=== PATIENT | male | born 1965 | race Caucasian/White ===

== ENCOUNTER 2020-04-25 14:14 | Inpatient (IN) ==
[2020-04-25] MEDS: NS 0.9% 1000 ml BAG 2,000 ML IV ONE ×2 (14:22→14:35)
[2020-04-25] MEDS ORDERED: NS 0.9% 1000 ml BAG 1,000 ML IV ONE ×2 (14:49→18:57)
[2020-04-25 15:00] LABS: ABS Eosinophils 0.1 10^3/ul (0-0.6); ABS Lymphocytes 1.2 10^3/ul (1.0-4.8); ABS Monocytes 0.7 10^3/ul (0-0.8); Eosinophil % 0.9 %; Hematocrit 38 % (42-52); Hemoglobin 13.2 g/dL (14.0-18.0); Lymphocyte % 12.5 %; Mean Corpuscular HGB Conc 35 g/dL (31-36); Mean Corpuscular Hemoglobin 32 pg (27-31); Mean Corpuscular Volume 93 fL (80-94); Platelet Count 312 10^3/uL (150-450); Red Blood Count 4.11 10^6 /uL (4.18-5.48); Red Cell Distribution Width 14 % (10-15); White Blood Count 9.3 10^3/uL (3.5-10.8)
[2020-04-25 15:19] LABS: Troponin I 0.01 ng/mL (<0.03)
[2020-04-25 15:35] LABS: ALT 17 U/L (7-52); AST 17 U/L (13-39); Albumin 3.5 g/dL (3.2-5.2); Alkaline Phosphatase 55 U/L (34-104); CO2 Carbon Dioxide 24 mmol/L (22-32); Calcium 7.4 mg/dL (8.6-10.3); Chloride 97 mmol/L (101-111); EGFR African American 12.5 (>60); EGFR Non-African American 10.3 (>60); Globulin 3.5 g/dL (2-4); Glucose 95 mg/dL (70-100); Sodium 135 mmol/L (135-145)
[2020-04-25 15:36] LABS: Anion Gap 14 mmol/L (2-11)
[2020-04-25 15:38] LABS: Alcohol, S < 10 mg/dL (<10); Salicylate < 2.50 mg/dL (<30)
[2020-04-25] MEDS ORDERED: Albuterol 2.5mg/3 ml (0.083%) NEB.SOLN INH ONE (15:44)
[2020-04-25] MEDS ORDERED: Insulin REGULAR 100 unit/ml(*) IV PUSH ONE (15:44)
[2020-04-25] MEDS ORDERED: CALCIUM GLUCONATE 1GM/50ML NS 1 GM/50 ML BAG IV ONE (15:44)
[2020-04-25] MEDS ORDERED: Dextrose 50% VIAL 50 ml IV ONE (15:45)
[2020-04-25] MEDS ORDERED: Dextrose 50% Syringe 50 ml 25 GM/50 ML SYRINGE ONE (16:01)
[2020-04-25] MEDS ORDERED: Dextrose 50% Syringe 50 ml 25 GM/50 ML SYRINGE IV PUSH ONE (16:05)
[2020-04-25 16:08] LABS: Magnesium 1.5 mg/dL (1.9-2.7)
[2020-04-25] MEDS ORDERED: Magnesium Sulfate 2 gm BAG 2 GM/50 ML BAG IVPB ONE (16:13)
[2020-04-25 16:16] LABS: BUN/Creatinine Ratio 26.7 (8-20); Blood Urea Nitrogen 153 mg/dL (6-24)
[2020-04-25] MEDS ORDERED: Magnesium Sulfate IV 1GM/100ML 1 GM/100 ML BAG IV ONE (17:44)
[2020-04-25] MEDS ORDERED: NS 0.9% 1000 ml BAG 1,000 ML IV SCH (18:00)
[2020-04-25 18:15] LABS: C Reactive Protein 93.57 mg/L (<8.01)
[2020-04-25 18:26] LABS: Urine Appearance Clear; Urine Bilirubin Negative (Negative); Urine Blood 1+ (Negative); Urine Color Straw; Urine Glucose Negative (Negative); Urine Ketones Negative (Negative); Urine Nitrite Negative (Negative); Urine Protein Negative (Negative); Urine Specific Gravity 1.009 (1.010-1.030); Urine Urobilinogen Negative (Negative)
[2020-04-25 18:32] LABS: Urine Bacteria Absent (Absent); Urine Red Blood Cell Trace(0-2/hpf) (Absent); Urine White Blood Cell Absent (Absent)
[2020-04-25 18:41] LABS: Urine Benzodiazepine Screen Presumptive Positive (None Detect); Urine Creatinine Concentration 69.04 mg/dL; Urine Opiates Screen Presumptive Positive (None Detect)
[2020-04-25 19:19] LABS: Erythrocyte Sed Rate 80 mm/Hr (0-19)
[2020-04-25] MEDS ORDERED: CLOTRIMAZOLE 1% TOPICAL SCH (21:00)
[2020-04-25] MEDS: Heparin 5000 UNITS/ML VIAL(*) 1 ml vial SUBCUT SCH (22:22)
[2020-04-25] MEDS: Clotrimazole 1% CREAM 30 gm TOPICAL SCH (22:23)
[2020-04-25] MEDS: Nystatin TOP POWDER 15 GM BTL TOPICAL SCH (22:23)
[2020-04-25 22:37] LABS: INR 1.09 (0.82-1.09)
[2020-04-25 22:42] LABS: Calcium 7.4 mg/dL (8.6-10.3)
[2020-04-25 22:47] LABS: BUN/Creatinine Ratio 30.4 (8-20); EGFR African American 20.2 (>60); EGFR Non-African American 16.7 (>60)
[2020-04-25 23:27] LABS: Potassium 4.8 mmol/L (3.5-5.0)
[2020-04-25 23:37] LABS: Urine Appearance Cloudy; Urine Bilirubin Negative (Negative); Urine Blood 3+ (Negative); Urine Color Straw; Urine Glucose Negative (Negative); Urine Ketones Negative (Negative); Urine Nitrite Negative (Negative); Urine Protein Negative (Negative); Urine Specific Gravity 1.009 (1.010-1.030); Urine Urobilinogen Negative (Negative)
[2020-04-25 23:42] LABS: Urine Bacteria Absent (Absent); Urine Red Blood Cell 3+(>10/hpf) (Absent); Urine White Blood Cell Trace(0-5/hpf) (Absent)
[2020-04-26] MEDS: Nicotine GUM 4MG FRUIT FLAVOR PO PRN ×2 (01:18→21:15)
[2020-04-26 05:18] LABS: ABS Eosinophils 0.1 10^3/ul (0-0.6); ABS Lymphocytes 1.2 10^3/ul (1.0-4.8); ABS Monocytes 0.7 10^3/ul (0-0.8); Eosinophil % 1.5 %; Hematocrit 36 % (42-52); Hemoglobin 12.3 g/dL (14.0-18.0); Lymphocyte % 16.2 %; Mean Corpuscular HGB Conc 35 g/dL (31-36); Mean Corpuscular Hemoglobin 32 pg (27-31); Mean Corpuscular Volume 92 fL (80-94); Mean Platelet Volume 6.7 fL (7.4-10.4); Nucleated Red Blood Cells % 0.1; Platelet Count 296 10^3/uL (150-450); Red Blood Count 3.88 10^6 /uL (4.18-5.48); Red Cell Distribution Width 14 % (10-15); White Blood Count 7.3 10^3/uL (3.5-10.8)
[2020-04-26] MEDS: Heparin 5000 UNITS/ML VIAL(*) 1 ml vial SUBCUT SCH ×3 (05:28→21:15)
[2020-04-26 05:31] LABS: BUN/Creatinine Ratio 39.4 (8-20); Calcium 7.5 mg/dL (8.6-10.3); EGFR African American 33.2 (>60); EGFR Non-African American 27.5 (>60); Magnesium 1.5 mg/dL (1.9-2.7); Phosphorus 5.2 mg/dL (2.5-5.0); Potassium 4.6 mmol/L (3.5-5.0); Uric Acid 17.3 mg/dL (4.4-7.6)
[2020-04-26 06:16] LABS: Hepatitis C Antibody Negative (Negative)
[2020-04-26] MEDS ORDERED: Magnesium Sulf 4 GM/100 ML IV 4,000 MG/100 ML BAG IVPB ONE (07:27)
[2020-04-26] MEDS: Aspirin EC 81 mg TAB.EC (enteric coated) PO SCH (08:23)
[2020-04-26] MEDS: lamoTRIgine 100 mg TAB (*) PO SCH (08:23)
[2020-04-26 14:11] LABS: BUN/Creatinine Ratio 41.2 (8-20); Calcium 8.4 mg/dL (8.6-10.3); EGFR African American 43.7 (>60); EGFR Non-African American 36.1 (>60); Magnesium 2.6 mg/dL (1.9-2.7); Potassium 4.6 mmol/L (3.5-5.0)
[2020-04-26] MEDS ORDERED: NS 0.9% 1000 ml BAG 1,000 ML IV SCH (16:00)
[2020-04-26] MEDS: Lactated Ringers 1000 ml BAG 1,000 ML IV SCH ×2 (16:27→22:29)
[2020-04-26] MEDS: Clotrimazole 1% CREAM 30 gm TOPICAL SCH ×2 (16:37→21:16)
[2020-04-26] MEDS: Nystatin TOP POWDER 15 GM BTL TOPICAL SCH ×2 (16:37→21:16)
[2020-04-27] MEDS: Lactated Ringers 1000 ml BAG 1,000 ML IV SCH (04:14)
[2020-04-27] MEDS: Heparin 5000 UNITS/ML VIAL(*) 1 ml vial SUBCUT SCH ×2 (05:57→13:25)
[2020-04-27 06:25] LABS: ABS Eosinophils 0.1 10^3/ul (0-0.6); ABS Lymphocytes 1.3 10^3/ul (1.0-4.8); ABS Monocytes 0.5 10^3/ul (0-0.8); Eosinophil % 1.6 %; Hematocrit 37 % (42-52); Hemoglobin 12.5 g/dL (14.0-18.0); Mean Corpuscular HGB Conc 34 g/dL (31-36); Mean Corpuscular Hemoglobin 32 pg (27-31); Mean Corpuscular Volume 93 fL (80-94); Mean Platelet Volume 6.8 fL (7.4-10.4); Platelet Count 295 10^3/uL (150-450); Red Blood Count 3.93 10^6 /uL (4.18-5.48); Red Cell Distribution Width 14 % (10-15); White Blood Count 6.5 10^3/uL (3.5-10.8)
[2020-04-27 06:52] LABS: BUN/Creatinine Ratio 36.9 (8-20); EGFR African American 63.1 (>60); EGFR Non-African American 52.2 (>60); Magnesium 1.6 mg/dL (1.9-2.7); Potassium 4.4 mmol/L (3.5-5.0)
[2020-04-27] MEDS: Aspirin EC 81 mg TAB.EC (enteric coated) PO SCH (08:06)
[2020-04-27] MEDS: lamoTRIgine 100 mg TAB (*) PO SCH (08:07)
[2020-04-27] MEDS: Clotrimazole 1% CREAM 30 gm TOPICAL SCH (14:18)
[2020-04-27] MEDS: Nystatin TOP POWDER 15 GM BTL TOPICAL SCH (14:18)
[2020-04-27 15:02] VITALS: BP 121/78
== END 2020-04-27 17:15 | disposition home or self-care (01) | DRG 682 ==
LOC: ED 14:14 → MEDTELE 18:53
PROVIDERS: ADMIT Internal Medicine; ATTEND Internal Medicine

== ENCOUNTER 2023-06-03 17:30 | Observation (INO) ==
[2023-06-03 20:17] LABS: ABS Basophils 0.1 10^3/uL (0.0-0.1); ABS Eosinophils 0.1 10^3/uL (0.0-0.5); ABS Lymphocytes 1.9 10^3/uL (1.0-4.8); ABS Monocytes 1.1 10^3/uL (0.0-1.1); ABS Neutrophils 10.6 10^3/uL (1.5-7.6); ABS Nucleated RBC 0.01 10^3/ul; Eosinophil % 0.4 %; Hematocrit 45.1 % (38-53); Hemoglobin 15.4 g/dL (13.2-16.3); Lymphocyte % 13.8 %; Mean Corpuscular Hgb Conc 34.2 g/dL (31-36); Mean Corpuscular Volume 90.7 fL (80-97); Mean Platelet Volume 6.1 fL (7.5-11.2); Platelet Count 350 10^3/uL (150-450); Red Blood Count 4.97 10^6/uL (4.06-5.63); Red Cell Distribution Width 13.4 % (12-17); White Blood Count 13.8 10^3/uL (3.6-10.2)
[2023-06-03 20:34] LABS: Albumin/Globulin Ratio 1.3 (1-3); Calcium 9.2 mg/dL (8.6-10.3); Magnesium 1.3 mg/dL (1.9-2.7); Potassium 3.4 mmol/L (3.5-5.0); Total Bilirubin 0.5 mg/dL (0.2-1.0)
[2023-06-03 20:54] LABS: TSH Ultra Thyroid Stim Horm 0.85 mcIU/mL (0.34-5.60)
[2023-06-03] MEDS ORDERED: NS 0.9% 1000 ml BAG 2,000 ML IV ONE (23:13)
[2023-06-04] MEDS ORDERED: Magnesium Sulf 4 GM/100 ML IV 4,000 MG/100 ML BAG IVPB ONE ×2 (00:05→07:28)
[2023-06-04] MEDS ORDERED: Potassium Chlor 20 meq TAB.ER PO ONE ×2 (00:06→10:53)
[2023-06-04] MEDS ORDERED: NS 0.9% 1000 ml BAG 1,000 ML IV SCH (00:15)
[2023-06-04] MEDS ORDERED: Iodixanol (CONTRAST) 320 MG/ML 100 ML SDV IV ONE (00:18)
[2023-06-04] MEDS ORDERED: Enoxaparin 30 MG/0.3 ML SYR SUBCUT SCH (01:00)
[2023-06-04 04:12] LABS: Urine Appearance Clear; Urine Bilirubin Negative (Negative); Urine Blood 2+ (Negative); Urine Color Yellow; Urine Glucose Negative (Negative); Urine Ketones Negative (Negative); Urine Nitrite Negative (Negative); Urine Protein Negative (Negative); Urine Specific Gravity 1.011 (1.002-1.030); Urine Urobilinogen Negative (Negative)
[2023-06-04 04:18] LABS: Urine Amorphous Crystals Present (Absent); Urine Bacteria Absent (Absent); Urine Red Blood Cell Trace(0-2/hpf) (Absent); Urine Squamous Epithelial Cell Present (Absent); Urine White Blood Cell 1+(6-10/hpf) (Absent)
[2023-06-04] MEDS ORDERED: Aspirin EC 81 mg TAB.EC (enteric coated) PO SCH (09:00)
[2023-06-04] MEDS ORDERED: DULoxetine DR 60 mg CAP PO SCH (09:00)
[2023-06-04 09:53] LABS: ABS Basophils 0.1 10^3/uL (0.0-0.1); ABS Eosinophils 0.1 10^3/uL (0.0-0.5); ABS Lymphocytes 1.8 10^3/uL (1.0-4.8); ABS Monocytes 0.8 10^3/uL (0.0-1.1); ABS Neutrophils 6.3 10^3/uL (1.5-7.6); Eosinophil % 1.3 %; Hematocrit 40.7 % (38-53); Lymphocyte % 19.7 %; Mean Corpuscular Hemoglobin 31.5 pg (27-33); Mean Corpuscular Hgb Conc 34.4 g/dL (31-36); Mean Corpuscular Volume 91.5 fL (80-97); Mean Platelet Volume 6.2 fL (7.5-11.2); Platelet Count 342 10^3/uL (150-450); Red Blood Count 4.44 10^6/uL (4.06-5.63); Red Cell Distribution Width 13.5 % (12-17); White Blood Count 9.1 10^3/uL (3.6-10.2)
[2023-06-04 10:09] LABS: Calcium 8.3 mg/dL (8.6-10.3); Creatinine, Serum 1.69 mg/dL (0.67-1.17); Magnesium 2.2 mg/dL (1.9-2.7); Potassium 3.4 mmol/L (3.5-5.0); eGFR CKD-EPI 46.5 (>60)
[2023-06-04 12:58] VITALS: BP 0/0
[2023-06-04] MEDS ORDERED: Zaleplon 10 mg CAP (NF) PO SCH (21:00)
== END 2023-06-04 12:50 | disposition home or self-care (01) ==
LOC: ED 17:30 → EDHOLD 17:30 → SUATTDRO 06-04 00:02 → EDHOLD 06-04 12:49
PROVIDERS: ADMIT Student in an Organized Health Care Education/Training Program; ATTEND Hospitalist

== ENCOUNTER 2023-11-07 15:47 | Inpatient (IN) ==
[2023-11-07] MEDS ORDERED: Piperacillin/Tazobac 3.375 BAG 3.375 GM/100 ML BAG IV ONE (16:07)
[2023-11-07 16:38] LABS: ABS Basophils 0.1 10^3/uL (0.0-0.1); ABS Eosinophils 0.2 10^3/uL (0.0-0.5); ABS Lymphocytes 1.4 10^3/uL (1.0-4.8); ABS Monocytes 0.9 10^3/uL (0.0-1.1); ABS Neutrophils 6.7 10^3/uL (1.5-7.6); Eosinophil % 1.7 %; Hematocrit 41.7 % (38-53); Hemoglobin 14.2 g/dL (13.2-16.3); Lymphocyte % 15.4 %; Mean Corpuscular Hemoglobin 30.7 pg (27-33); Mean Corpuscular Hgb Conc 34.1 g/dL (31-36); Mean Corpuscular Volume 89.8 fL (80-97); Mean Platelet Volume 6.7 fL (7.5-11.2); Platelet Count 272 10^3/uL (150-450); Red Blood Count 4.64 10^6/uL (4.06-5.63); Red Cell Distribution Width 15.5 % (12-17); White Blood Count 9.3 10^3/uL (3.6-10.2)
[2023-11-07 16:41] LABS: Urine Appearance Cloudy; Urine Bilirubin Negative (Negative); Urine Blood 3+ (Negative); Urine Color Yellow; Urine Glucose Negative (Negative); Urine Ketones Negative (Negative); Urine Nitrite Negative (Negative); Urine Protein 3+(>=500 mg/dL) (Negative); Urine Specific Gravity 1.024 (1.002-1.030); Urine Urobilinogen Negative (Negative)
[2023-11-07 16:51] LABS: Activated Partial Thrombo Time 29.2 seconds (26.0-38.0); INR 1.12 (0.83-1.13)
[2023-11-07 16:57] LABS: Urine Bacteria Absent (Absent); Urine Red Blood Cell 3+(>10/hpf) (Absent); Urine Squamous Epithelial Cell Present (Absent); Urine White Blood Cell 1+(6-10/hpf) (Absent)
[2023-11-07 16:58] LABS: Albumin 4.1 g/dL (3.2-5.2); Albumin/Globulin Ratio 1.5 (1-3); C Reactive Protein 159.54 mg/L (<8.01); Calcium 8.9 mg/dL (8.6-10.3); Creatinine, Serum 1.37 mg/dL (0.67-1.17); Globulin 2.7 g/dL (2-4); Potassium 3.4 mmol/L (3.5-5.0); Total Bilirubin 0.6 mg/dL (0.2-1.0); Total Protein 6.8 g/dL (6.4-8.9); eGFR CKD-EPI 59.4 (>60)
[2023-11-07] MEDS ORDERED: Senna TAB 8.6 mg TAB PO ONE (17:51)
[2023-11-07] MEDS ORDERED: Polyethylene Glycol 3350 17 GM PACKET PO ONE (17:51)
[2023-11-07] MEDS ORDERED: Senna TAB 8.6 mg TAB PO PRN (17:52)
[2023-11-07] MEDS ORDERED: Polyethylene Glycol 3350 17 GM PACKET PO PRN (17:53)
[2023-11-07 18:12] LABS: High Sensitivity Troponin 1 Hr 4 pg/mL (<20)
[2023-11-07] MEDS ORDERED: Potassium Chlor 20 meq TAB.ER PO ONE (18:40)
[2023-11-07] MEDS: NS 0.9% 1000 ml BAG 1,000 ML IV SCH (18:51)
[2023-11-08] MEDS: NS 0.9% 1000 ml BAG 1,000 ML IV SCH (05:00)
[2023-11-08 06:34] LABS: Hematocrit 41.1 % (38-53); Hemoglobin 13.7 g/dL (13.2-16.3); Mean Corpuscular Hemoglobin 30.4 pg (27-33); Mean Corpuscular Hgb Conc 33.3 g/dL (31-36); Mean Corpuscular Volume 91.3 fL (80-97); Platelet Count 242 10^3/uL (150-450); Red Cell Distribution Width 15.4 % (12-17); White Blood Count 7.2 10^3/uL (3.6-10.2)
[2023-11-08 06:52] LABS: Albumin 3.5 g/dL (3.2-5.2); Albumin/Globulin Ratio 1.3 (1-3); Calcium 8.7 mg/dL (8.6-10.3); Creatinine, Serum 1.05 mg/dL (0.67-1.17); Globulin 2.6 g/dL (2-4); Magnesium 1.9 mg/dL (1.9-2.7); Potassium 3.2 mmol/L (3.5-5.0); Total Bilirubin 0.6 mg/dL (0.2-1.0); Total Protein 6.1 g/dL (6.4-8.9); eGFR CKD-EPI 81.8 (>60)
[2023-11-08] MEDS ORDERED: Zosyn per Pharmacy NOTE FOLLOW UP SCH (07:00)
[2023-11-08] MEDS ORDERED: Potassium Chlor 20 meq TAB.ER PO ONE ×2 (07:38→13:00)
[2023-11-08] MEDS ORDERED: ZOSYN 3.375 GM x ONE DOSE over 30 miuntes IV (08:00)
[2023-11-08] MEDS ORDERED: Polyethylene Glycol 3350 17 GM PACKET PO SCH (09:00)
[2023-11-08] MEDS: DULoxetine DR 60 mg CAP PO SCH (09:01)
[2023-11-08] MEDS: Polyethylene Glycol 3350 17 GM PACKET PO SCH ×2 (09:02→21:00)
[2023-11-08] MEDS: ZOSYN 3.375 GM Q8H per EXTENDED INFUSION IV SCH ×2 (13:00→20:48)
[2023-11-09] MEDS: ZOSYN 3.375 GM Q8H per EXTENDED INFUSION IV SCH ×2 (05:03→19:53)
[2023-11-09 06:53] LABS: ABS Eosinophils 0.2 10^3/uL (0.0-0.5); ABS Monocytes 0.6 10^3/uL (0.0-1.1); ABS Neutrophils 5.2 10^3/uL (1.5-7.6); ABS Nucleated RBC 0.01 10^3/ul; Eosinophil % 2.6 %; Hematocrit 37.8 % (38-53); Hemoglobin 12.9 g/dL (13.2-16.3); Lymphocyte % 24.9 %; Mean Corpuscular Hemoglobin 30.6 pg (27-33); Mean Corpuscular Hgb Conc 34.1 g/dL (31-36); Mean Corpuscular Volume 89.9 fL (80-97); Mean Platelet Volume 7.2 fL (7.5-11.2); Nucleated Red Blood Cells % 0.1 %/100WBC (0.0-0.8); Platelet Count 278 10^3/uL (150-450); Red Cell Distribution Width 15.5 % (12-17)
[2023-11-09 07:02] LABS: Calcium 8.8 mg/dL (8.6-10.3); Creatinine, Serum 1.02 mg/dL (0.67-1.17); Magnesium 1.9 mg/dL (1.9-2.7); Potassium 3.5 mmol/L (3.5-5.0); eGFR CKD-EPI 84.7 (>60)
[2023-11-09] MEDS: Polyethylene Glycol 3350 17 GM PACKET PO SCH (09:28)
[2023-11-09] MEDS: DULoxetine DR 60 mg CAP PO SCH (10:35)
[2023-11-09 14:39] VITALS: BP 104/68
== END 2023-11-09 15:48 | disposition home or self-care (01) | DRG 872 ==
LOC: ED 15:47 → EDHOLD 15:47 → SUATTDRO 17:54 → SSU 18:42
PROVIDERS: ADMIT Student in an Organized Health Care Education/Training Program; ATTEND Internal Medicine

== ENCOUNTER 2023-12-07 08:47 | Observation (INO) ==
[~2023-12-07 08:47] MED LIST: Ampicillin ADVAN 2 GM in NS 0.9% 100 ML IVPB ONE; Buffered Lidocaine 1% SYRIN 1 ml INTRADERM ONE; GENTAMICIN ADULT IVPB ONE; Lactated Ringers 1000 ml BAG 1,000 ML IV SCH; NS 0.9% IVPB ONE
[2023-12-07] MEDS ORDERED: Albuterol HFA INHALER 8 gm MDI INH PRN (09:24)
[2023-12-07] MEDS ORDERED: Ondansetron 4 mg VIAL 2 MG/ML 2 ml VIAL IV PRN (09:26)
[2023-12-07] MEDS ORDERED: Midazolam 2 mg/2 ml VIAL 1 mg/ml 2 ml VIAL (2 mg) ONE (09:35)
[2023-12-07] MEDS ORDERED: Propofol 10 MG/ML 20 ML BTL ONE ×2 (09:37→10:53)
[2023-12-07] MEDS ORDERED: Lidocaine 2% PF 5 ML VIAL ONE (09:41)
[2023-12-07] MEDS ORDERED: fentaNYL 100 mcg/2 ml 50 MCG/ML VIAL ONE (09:41)
[2023-12-07 09:43] LABS: Rapid COVID-19 Molecular Undetected (Undetected)
[2023-12-07] MEDS ORDERED: Rocuronium 50 mg VIAL 10 mg/ml 5 ml VIAL (50 mg) ONE (10:23)
[2023-12-07] MEDS ORDERED: Ondansetron 4 mg VIAL 2 MG/ML 2 ml VIAL ONE (10:47)
[2023-12-07] MEDS ORDERED: Dexamethasone IV 4 MG/ML VIAL 1 ml VIAL ONE (10:47)
[2023-12-07] MEDS ORDERED: Furosemide 20 mg/2 ml IV VIAL ONE (11:01)
[2023-12-07] MEDS: NS 0.9% 1000 ml BAG 1,000 ML IV SCH ×2 (14:48→22:59)
[2023-12-07] MEDS: Neomycin/Polym/Bacit TOP OINT 15 GM TOPICAL SCH ×3 (14:48→20:45)
[2023-12-07] MEDS: DULoxetine DR 60 mg CAP PO SCH (20:44)
[2023-12-07] MEDS: Magnesium Hydroxide LIQ 30 ML UDC PO SCH (20:45)
[2023-12-08 05:17] VITALS: BP 126/76
[2023-12-08] MEDS: Magnesium Hydroxide LIQ 30 ML UDC PO SCH (09:37)
[2023-12-08] MEDS: DULoxetine DR 60 mg CAP PO SCH (09:38)
[2023-12-08] MEDS: Neomycin/Polym/Bacit TOP OINT 15 GM TOPICAL SCH (09:38)
== END 2023-12-08 11:30 | disposition home or self-care (01) ==
LOC: OR 08:47 → SSU 08:47
PROVIDERS: ADMIT Urology; ATTEND Urology